=== PATIENT | male | born 1975 | race African-American/Black ===

== ENCOUNTER 2023-02-16 04:54 | Day surgery (SDC) | payer OTHER ==
[2023-02-10 14:57] VITALS: BMI 32.2
[2023-02-16 10:19] LABS: BASO % 0.5 % (0-2.0); EOS % 2.3 % (0-4.5); HEMATOCRIT 40.5 % (35.4-49); HEMOGLOBIN 13.7 GM/dL (11.7-16.9); LYMPH % 25.6 % (8-40); MCH 26.1 pg (25.7-33.7); MCHC 33.8 g/dl (32.0-35.9); MEAN CELL VOLUME 77.2 fl (80-96); MEAN PLT VOLUME 8.9 fl (7.5-11.1); MONO % 7.3 % (3.8-10.2); NEUT % 64.3 % (42.8-82.8); PLATELET COUNT 179 10^3/uL (134-434); RBC 5.24 M/mm3 (4.00-5.60); RDW 15.1 % (11.9-15.9); WHITE BLOOD COUNT 5.3 K/mm3 (4.0-10.0)
[2023-02-16 10:27] LABS: INR 1.05 (0.83-1.09); PROTHROMBIN TIME (PATIENT) 12.2 SEC (9.7-13.0)
[2023-02-16] MEDS ORDERED: MIDAZOLAM HCL 2 MG/2 ML SINGLE DOSE VIAL ONE ×2 (12:06→13:10)
[2023-02-16] MEDS ORDERED: FENTANYL CITRATE/PF 50 MCG/ML VIAL ONE ×2 (12:06→13:10)
[2023-02-16] MEDS ORDERED: SODIUM CHLORIDE 500 ML IV ONE (12:30)
[2023-02-16] MEDS: MIDAZOLAM HCL 2 MG/2 ML SINGLE DOSE VIAL IVPUSH SCH ×2 (12:50→13:04)
[2023-02-16 14:11] VITALS: RESP 18
[2023-02-16 15:28] VITALS: BP 125/67; PULSE 86; TEMP 98
== END 2023-02-16 15:55 | disposition home or self-care (01) ==
LOC: JRADIR 04:54
PROVIDERS: ATTEND Internal Medicine Hematology & Oncology
PROC: 07DR3ZX Extraction of Iliac Bone Marrow, Percutaneous Approach, Diagnostic (ICD-10-PCS; principal; 2023-02-16)
PROC: 079T3ZX Drainage of Bone Marrow, Percutaneous Approach, Diagnostic (ICD-10-PCS; 2023-02-16)
DX: D75.89 Other specified diseases of blood and blood-forming organs (principal); Z86.718 Personal history of other venous thrombosis and embolism
CPT/HCPCS: 20225; 36415; 77012-TC; 85025; 85610; 88300-TC